=== PATIENT | female | born 1975 | race Caucasian/White ===

== ENCOUNTER 2017-02-13 20:22 | Emergency (ER) | payer OTHER ==
[2017-02-13 20:28] VITALS: BP 154/110
== END 2017-02-13 21:18 | disposition home or self-care (01) ==
LOC: ED 20:22
DX: B02.8 Zoster with other complications (principal); G43.909 Migraine, unspecified, not intractable, without status migrainosus

== ENCOUNTER 2020-02-11 11:19 | Emergency (ER) | payer OTHER | END 2020-02-11 12:53 | disposition left against medical advice (07) | LOC: ED 11:19 | DX: Z53.21 Procedure and treatment not carried out due to patient leaving prior to being seen by health care provider (principal) ==